=== PATIENT | female | born 1995 | race Caucasian/White ===

== ENCOUNTER 2021-07-24 00:45 | Observation (INO) | payer OTHER ==
[2021-07-24 01:14] VITALS: BMI 46.3
[2021-07-24 03:45] LABS: BASO % 0.5 % (0-2.0); EOS % 0.8 % (0-4.5); HEMATOCRIT 32.6 % (32.4-45.2); HEMOGLOBIN 10.3 GM/dL (10.7-15.3); LYMPH % 12.9 % (8-40); MCH 21.6 pg (25.7-33.7); MCHC 31.7 g/dl (32.0-36.0); MEAN CELL VOLUME 68.1 fl (80-96); MEAN PLT VOLUME 7.2 fl (7.5-11.1); MONO % 13.3 % (3.8-10.2); NEUT % 72.5 % (42.8-82.8); PLATELET COUNT 457 10^3/uL (134-434); RBC 4.78 M/mm3 (3.60-5.2); WHITE BLOOD COUNT 5.3 K/mm3 (4.0-10.0)
[2021-07-24 03:52] LABS: INR 1.22 (0.83-1.09); PROTHROMBIN TIME (PATIENT) 13.7 SEC (9.7-13.0)
[2021-07-24 03:55] LABS: ACTIVATED PTT 29.2 SECONDS (25.2-36.5)
[2021-07-24 04:04] LABS: CHLORIDE 103 mmol/L (98-107); SODIUM 136 mmol/L (136-145)
[2021-07-24 04:06] LABS: BLOOD UREA NITROGEN 8.5 mg/dL (7-18); CALCIUM 8.7 mg/dL (8.5-10.1)
[2021-07-24 04:07] LABS: ALBUMIN 3.8 g/dl (3.4-5.0); ANION GAP 4 MMOL/L (8-16); CO2 29 mmol/L (21-32); GLUCOSE,RANDOM 98 mg/dL (74-106)
[2021-07-24 04:10] LABS: CREATININE 0.7 mg/dL (0.55-1.3); SGOT/AST 24 U/L (15-37); SGPT/ALT 36 U/L (13-61)
[2021-07-24 04:11] LABS: BILIRUBIN,TOTAL 0.2 mg/dL (0.2-1); TOT PROT 8.3 g/dl (6.4-8.2)
[2021-07-24 04:12] LABS: ALK PHOS 85 U/L (45-117)
[2021-07-24 04:13] LABS: LDH 220 U/L (84-246)
[2021-07-24 05:49] LABS: VENOUS BASE EXCESS -0.8 mmol/L (-2-2); VENOUS O2 SATURATION 53.4 % (70-80); VENOUS PCO2 47.8 mmHg (38-52); VENOUS PH 7.34 (7.310-7.410)
[2021-07-24 06:19] LABS: URINE APPEARANCE CLEAR; URINE BILIRUBIN NEGATIVE (NEGATIVE); URINE COLOR YELLOW; URINE GLUCOSE (UA) NEGATIVE (NEGATIVE); URINE KETONE NEGATIVE (NEGATIVE); URINE LEUK ESTERASE NEGATIVE (NEGATIVE); URINE NITRITE NEGATIVE (NEGATIVE); URINE PROTEIN NEGATIVE (NEGATIVE); URINE UROBILINOGEN 0.2 mg/dL (0.2-1.0)
[2021-07-24 08:50] LABS: ANISOCYTOSIS 3+; MACROCYTOSIS 0; PLATELET ESTIMATE NORMAL
[2021-07-24 16:25] LABS: HEMATOCRIT 31.7 % (32.4-45.2); MCH 21.4 pg (25.7-33.7); MCHC 31.3 g/dl (32.0-36.0); MEAN CELL VOLUME 68.2 fl (80-96); MEAN PLT VOLUME 7.8 fl (7.5-11.1); PLATELET COUNT 371 10^3/uL (134-434); RBC 4.66 M/mm3 (3.60-5.2); RDW 17.9 % (11.6-15.6)
[2021-07-24 16:46] LABS: CHLORIDE 106 mmol/L (98-107); SODIUM 138 mmol/L (136-145)
[2021-07-24 16:49] LABS: BLOOD UREA NITROGEN 8.6 mg/dL (7-18); CALCIUM 8.6 mg/dL (8.5-10.1); GLUCOSE,RANDOM 102 mg/dL (74-106); MAGNESIUM 2.5 mg/dL (1.8-2.4)
[2021-07-24 16:50] LABS: ALBUMIN 3.4 g/dl (3.4-5.0)
[2021-07-24 16:52] LABS: CREATININE 0.6 mg/dL (0.55-1.3); PHOSPHOROUS 3.6 mg/dL (2.5-4.9)
[2021-07-24 16:53] LABS: SGOT/AST 24 U/L (15-37)
[2021-07-24 16:54] LABS: BILIRUBIN,TOTAL < 0.1 mg/dL (0.2-1); TOT PROT 7.6 g/dl (6.4-8.2)
[2021-07-24 17:47] LABS: ANISOCYTOSIS 2+; MACROCYTOSIS 0; OVALOCYTE 1+; PLATELET ESTIMATE NORMAL; ROULEAU 1+
[2021-07-24 18:42] LABS: ALK PHOS 77 U/L (45-117); ANION GAP 8 MMOL/L (8-16); CO2 25 mmol/L (21-32); SGPT/ALT 37 U/L (13-61)
[2021-07-25 05:29] VITALS: BP 115/71; PULSE 76; TEMP 98.4
[2021-07-25 09:56] LABS: HEMATOCRIT 31.7 % (32.4-45.2); HEMOGLOBIN 9.9 GM/dL (10.7-15.3); MCH 21.5 pg (25.7-33.7); MCHC 31.3 g/dl (32.0-36.0); MEAN CELL VOLUME 68.6 fl (80-96); MEAN PLT VOLUME 7.6 fl (7.5-11.1); PLATELET COUNT 414 10^3/uL (134-434); RBC 4.62 M/mm3 (3.60-5.2); RDW 18.1 % (11.6-15.6); WHITE BLOOD COUNT 3.8 K/mm3 (4.0-10.0)
[2021-07-25 10:20] LABS: CALCIUM 8.3 mg/dL (8.5-10.1)
[2021-07-25 10:21] LABS: BLOOD UREA NITROGEN 7.9 mg/dL (7-18); MAGNESIUM 2.2 mg/dL (1.8-2.4)
[2021-07-25 10:24] LABS: CREATININE 0.6 mg/dL (0.55-1.3); PHOSPHOROUS 3.8 mg/dL (2.5-4.9)
[2021-07-25 10:25] LABS: BILIRUBIN,TOTAL 0.1 mg/dL (0.2-1)
[2021-07-25 10:26] LABS: TOT PROT 7.1 g/dl (6.4-8.2)
== END 2021-07-25 16:00 | disposition home or self-care (01) ==
LOC: JER 00:45 → JERBED 05:04
PROVIDERS: ATTEND Internal Medicine
PROC: 3E023GC Introduction of Other Therapeutic Substance into Muscle, Percutaneous Approach (ICD-10-PCS; principal; 2021-07-24)
PROC: 3E033GC Introduction of Other Therapeutic Substance into Peripheral Vein, Percutaneous Approach (ICD-10-PCS; 2021-07-24)
DX: U07.1 COVID-19 (principal); J45.20 Mild intermittent asthma, uncomplicated; O07.1 Delayed or excessive hemorrhage following failed attempted termination of pregnancy; Z98.84 Bariatric surgery status; E66.01 Morbid (severe) obesity due to excess calories; D64.9 Anemia, unspecified; Z68.42 Body mass index [BMI] 45.0-49.9, adult
CPT/HCPCS: 36415; 71045-TC-FY; 80053; 81003; 82550; 82607; 82728; 82746; 82803; 82962; 83540; 83550; 83605; 83615; 83735; 84100; 84443; 84484; 84703; 85025; 85027; 85045; 85379; 85610; 85730; 86140; 87040; 87086; 87804; 93005; 93010; 93970-TC; 96372; 96374; 99285-25; C9803; G0378; U0003; U0005

== ENCOUNTER 2021-07-26 10:48 | Emergency (ER) | payer OTHER ==
[2021-07-26 11:04] VITALS: BP 103/67; PULSE 70; TEMP 97.5; BMI 46.3
== END 2021-07-26 12:25 | disposition home or self-care (01) ==
LOC: JER 10:48
DX: U07.1 COVID-19 (principal)
CPT/HCPCS: 99282-25